=== PATIENT | male | born 1985 | race Caucasian/White ===

== ENCOUNTER 2018-04-27 23:18 | Emergency (ER) | payer MEDICAID ==
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
[2018-04-28 00:11] VITALS: BP 138/99
== END 2018-04-28 00:13 | disposition home or self-care (01) ==
DX: S40.012A Contusion of left shoulder, initial encounter (principal); Y04.0XXA Assault by unarmed brawl or fight, initial encounter